=== PATIENT | male | born 1995 | race Hispanic/Latino ===

== ENCOUNTER 2017-08-30 21:23 | Emergency (ER) | payer SELFPAY ==
[~2017-08-30] VITALS: Ht 167.6 cm; Wt 90.6 kg
[2017-08-30] MEDS ORDERED: BENADRYL 50MG C50 MG PO (22:21)
[2017-08-30] MEDS ORDERED: MEDDOSEPAK PO (22:21)
[2017-08-30] MEDS ORDERED: BENADRY2 EX (22:21)
[2017-08-30 22:33] VITALS: BP 137/91
== END 2017-08-30 22:33 | disposition home or self-care (01) | DRG 607 ==
LOC: ED 21:23
DX: L25.9 Unspecified contact dermatitis, unspecified cause (principal)

== ENCOUNTER 2018-12-13 12:02 | Emergency (ER) | payer SELFPAY ==
[~2018-12-13] VITALS: Ht 167.6 cm; Wt 80.0 kg
[~2018-12-13 12:02] MED LIST: BENADRY2 EX; BENADRYL 50MG C50 MG PO; MEDDOSEPAK PO
[2018-12-13] MEDS ORDERED: ERYTHROMYCIN O3.5 GM OU (12:28)
[2018-12-13] MEDS ORDERED: DELTASONE20 MG PO (12:28)
[2018-12-13 12:32] VITALS: BP 136/74
== END 2018-12-13 12:32 | disposition home or self-care (01) | DRG 607 ==
LOC: ED 12:02
DX: L25.9 Unspecified contact dermatitis, unspecified cause (principal); R22.0 Localized swelling, mass and lump, head

== ENCOUNTER 2019-05-31 13:42 | Emergency (ER) | payer SELFPAY ==
[~2019-05-31] VITALS: Ht 167.6 cm; Wt 89.0 kg
[~2019-05-31 13:42] MED LIST changes: +DELTASONE20 MG PO; +ERYTHROMYCIN O3.5 GM OU
[2019-05-31] MEDS ORDERED: KEFLEX500 M1 PO (14:34)
[2019-05-31] MEDS ORDERED: BACTROBAN TOP (14:34)
[2019-05-31 14:40] VITALS: BP 123/74
== END 2019-05-31 14:40 | disposition home or self-care (01) | DRG 603 ==
LOC: ED 13:42
DX: L01.00 Impetigo, unspecified (principal)